=== PATIENT | male | born 1945 | race Caucasian/White ===

== ENCOUNTER 2018-11-30 07:54 | Emergency (ER) | payer MEDICARE, OTHER ==
[~2018-11-30] VITALS: Ht 172.7 cm; Wt 87.1 kg
[2018-11-30] MEDS ORDERED: MORPHINE SULFATE 4 MG/ML, 1ML IVPush PRN (08:30)
[2018-11-30] MEDS ORDERED: FAMOTIDINE 20 MG/2 ML IVPush ONE (08:30)
[2018-11-30] MEDS ORDERED: ASPIRIN 81 MG TABLET CHEW PO ONE (08:30)
[2018-11-30] MEDS ORDERED: SODIUM CHLORIDE FLUSH 10ML SYR IVF ONE (08:30)
[2018-11-30] MEDS ORDERED: PLEASE ENTER ALLERGIES MC SCH (08:30)
[2018-11-30] MEDS ORDERED: ASPIRIN 81 MG TABLET CHEW ONE (08:47)
[2018-11-30] MEDS ORDERED: FAMOTIDINE 20 MG/2 ML ONE (08:47)
--- NOTE | 2018-11-30 08:52 | NUR ---
CHEST PRESSURE SINCE 2 THIS MORNING, NON RADIATING AND NON PROVOKED. FAMILY WITH PT
[2018-11-30 08:54] LABS: BASOPHILS # (AUTO) 0.02 x10^3/uL (0-0.1); BASOPHILS % (AUTO) 0 % (0-1); EOSINOPHILS # (AUTO) 0.07 x10^3/uL (0-0.4); EOSINOPHILS % (AUTO) 1 % (1-7); LYMPHOCYTES # (AUTO) 0.69 x10^3/uL (1-3.4); LYMPHOCYTES % (AUTO) 6 % (22-44); MD NO; MEAN CORPUSCULAR HEMOGLOBIN 30.1 pg (27.5-34.5); MEAN CORPUSCULAR HGB CONC 32.9 g/dL (33.2-36.2); MEAN CORPUSCULAR VOLUME 91.5 fL (81-97); MEAN PLATELET VOLUME 7.3 fL (7.4-10.4); MONOCYTES # (AUTO) 0.95 x10^3/uL (0.2-0.8); MONOCYTES % (AUTO) 8 % (2-9); NEUTROPHILS # (AUTO) 10.47 x10^3/uL (1.8-6.8); NEUTROPHILS % (AUTO) 86 % (42-75); PLATELET COUNT 253 x10^3/uL (130-400); RED BLOOD COUNT 4.08 x10^6/uL (4.38-5.82); RED CELL DISTRIBUTION WIDTH 15.2 % (9.4-14.8)
[2018-11-30] MEDS ORDERED: MORPHINE SULFATE 4 MG/ML, 1ML ONE (08:58)
[2018-11-30 09:02] LABS: ALBUMIN 3.4 g/dL (3.4-5.0); ANION GAP 10 mmol/L (5-15); CALCIUM 8.6 mg/dL (8.5-10.1); CHLORIDE 106 mmol/L (98-107)
[2018-11-30 09:07] LABS: ALANINE AMINOTRANSFERASE 24 U/L (12-78); ALKALINE PHOSPHATASE 60 U/L (45-117); BILIRUBIN,TOTAL 0.5 mg/dL (0.2-1.0); CREATININE 1.06 mg/dL (0.7-1.3); TOTAL PROTEIN 6.7 g/dL (6.4-8.2); TROPONIN I < 0.015 ng/mL (0.000-0.045)
--- NOTE | 2018-11-30 10:06 | NUR ---
BEDSIDE ULTRASOUND BEING COMPLETED
--- NOTE | 2018-11-30 10:31 | NUR ---
PT SLEEPING. CONTINUE TO MONITOR
[2018-11-30] MEDS ORDERED: MAALOX/HYOSCYAMINE/LIDOCAINE 45 ML BTL PO ONE (11:00)
[2018-11-30] MEDS ORDERED: MAALOX/HYOSCYAMINE/LIDOCAINE 45 ML BTL ONE (11:09)
[2018-11-30 11:23] VITALS: BP 133/63
== END 2018-11-30 11:31 ==
LOC: ED 11:15
DX: K29.00 Acute gastritis without bleeding (principal); I10 Essential (primary) hypertension; E78.00 Pure hypercholesterolemia, unspecified; J45.909 Unspecified asthma, uncomplicated; E11.9 Type 2 diabetes mellitus without complications
CPT/HCPCS: 36415; 71045; 76700; 80053; 83690; 83880; 84484; 85025; 93005; 96374; 96375; 99284; J2270; J3490